=== PATIENT | female | born 1975 | race African-American/Black ===

== ENCOUNTER 2024-07-27 04:54 | Day surgery (SDC) | payer OTHER ==
[2024-07-25 15:33] VITALS: BMI 24.1
[2024-07-27 10:24] VITALS: TEMP 98.3
[2024-07-27 12:02] VITALS: BP 110/56; PULSE 75; RESP 18
== END 2024-07-27 12:03 | disposition home or self-care (01) ==
LOC: JASU-ENDO 04:54
PROVIDERS: ATTEND Internal Medicine Gastroenterology
PROC: 0DJD8ZZ Inspection of Lower Intestinal Tract, Via Natural or Artificial Opening Endoscopic (ICD-10-PCS; principal; 2024-07-27 11:00)
DX: Z12.11 Encounter for screening for malignant neoplasm of colon (principal)
CPT/HCPCS: 81025